=== PATIENT | female | born 1975 | race Native Hawaiian/Other Pacific Islander ===

== ENCOUNTER 2017-02-20 09:46 | Outpatient (CLI) | payer OTHER | END 2017-02-20 19:06 | disposition home or self-care (01) | LOC: MAMMO 09:46 | DX: Z12.31 Encounter for screening mammogram for malignant neoplasm of breast (principal); M54.6 Pain in thoracic spine ==

== ENCOUNTER 2017-02-21 08:55 | Outpatient (CLI) | payer OTHER | END 2017-02-21 19:05 | disposition home or self-care (01) | LOC: US 08:55 | DX: N85.2 Hypertrophy of uterus (principal) ==